=== PATIENT | female | born 1970 | race Caucasian/White ===

== ENCOUNTER → 2017-11-26 | Outpatient (CLI) | payer OTHER ==
[2015-05-02 21:30] VITALS: BP 98/62
[~2017-11-26] MED LIST: CETI10TA22 PO; CLON0.5T3 PO; CLON1TAB3 PO; ESOM40CA PO; FLUO40CA9 PO; FLUT1DIS5 IH; FLUT9.9S NS; LAMO100T5 PO; LEVO50TA PO; MORP30TA3 PO
--- NOTE | 2017-12-04 17:09 | RAD ---
Bilateral digital screening mammograms: Reason for examination: Routine screening. No previous examinations available for comparison. Interpretation is made with the benefit of CAD. The skin and nipples show no abnormalities. No abnormal lymph nodes are seen. The breast parenchyma is predominantly fatty. (Breast density: Category A.) There are no dominant masses, suspicious calcifications or architectural distortions. Impression: No evidence of malignancy. Recommend routine screening. BI-RADS Category 1: Negative. "Our facility is accredited by the [employer] Mammography [employer]." This patient's information has been entered into a reminder system for the patient to be notified with the results of her examination and a target date for the next mammogram. Electronically signed by: Anna Hancock MD (12/04/2017 5:06 PM) [id number]
== END | disposition home or self-care (01) ==
LOC: MAMMO 15:38
DX: Z12.31 Encounter for screening mammogram for malignant neoplasm of breast (principal)
CPT/HCPCS: 77067

== ENCOUNTER → 2019-09-25 | Outpatient (CLI) | payer OTHER ==
[2015-05-02 21:30] VITALS: BP 98/62
[~2019-09-25] MED LIST changes: -CETI10TA22 PO; +CETI10TA24 PO; -CLON0.5T3 PO; +CLON0.5T4 PO; +CLON1TAB11 PO; -CLON1TAB3 PO; +MORP-16 PO; -MORP30TA3 PO
--- NOTE | 2019-09-25 17:33 | RAD ---
History: Routine Screening. Technique: Bilateral digital mammographic routine views were obtained with CAD - computer aided detection. Comparison: 11/26/2017. Findings: Breast Tissue Density A : The breast tissue is predominately fatty replaced. There are no suspicious masses, microcalcifications or areas of architectural distortion. Impression: Negative mammogram. BI-RADS Category 1: Negative. Normal interval followup. . A mammogram does not have 100% sensitivity and therefore a negative imaging study should not delay further work up of a suspicious abnormality. The patient will receive a letter with the results in the mail. Patient information is entered into the reminder system with a target due date for the next screening mammogram. The patient will receive a reminder. "Our facility is accredited by the [employer] Mammography [employer]." BI-RADS 1 -- negative findings (within normal)
== END | disposition home or self-care (01) ==
LOC: MAMMO 08:13
PROVIDERS: ATTEND Nurse Practitioner Family
DX: Z12.31 Encounter for screening mammogram for malignant neoplasm of breast (principal); N64.89 Other specified disorders of breast
CPT/HCPCS: 77067